=== PATIENT | female | born 1950 | race Caucasian/White ===

== ENCOUNTER 2021-09-07 07:04 | Day surgery (SDC) | payer MEDICARE, OTHER ==
[~2021-09-07 07:04] MED LIST: Lactated Ringers 1,000 ML IV SCH
[2021-09-07] MEDS ORDERED: fentaNYL 100 MCG/2 ML SDV ONE (08:02)
[2021-09-07] MEDS ORDERED: Propofol 200 MG/20 ML SDV ONE (08:03)
== END 2021-09-07 10:40 | disposition home or self-care (01) ==
LOC: VM.SDS 07:04
PROVIDERS: ATTEND Family Medicine
DX: K63.5 Polyp of colon (principal); K57.30 Diverticulosis of large intestine without perforation or abscess without bleeding; K64.4 Residual hemorrhoidal skin tags; E78.2 Mixed hyperlipidemia; E11.9 Type 2 diabetes mellitus without complications; G47.00 Insomnia, unspecified; Z79.899 Other long term (current) drug therapy; Z88.0 Allergy status to penicillin; Z88.8 Allergy status to other drugs, medicaments and biological substances; Z79.84 Long term (current) use of oral hypoglycemic drugs; Z88.5 Allergy status to narcotic agent; Z98.890 Other specified postprocedural states; Z87.891 Personal history of nicotine dependence
CPT/HCPCS: 00811; 82947; J2704; J3010; J7120